=== PATIENT | male | born 1935 | race Caucasian/White ===

== ENCOUNTER 2017-02-08 11:44 | Observation (INO) | payer MEDICARE, OTHER ==
[~2017-02-08] VITALS: Ht 177.8 cm; Wt 75.8 kg
--- NOTE | ~2017-02-08 | HP ---
History And Physical [facility] [address] [place]. [address] NAME: JULIA NAVA : 39 STATUS : ADM Law PAT#: [id number] AGE: 81 ADM/REG DATE : 02/08/17 MR#: [id number] REPORT SERV DATE: 02/09/17 DICTATED BY: ABBY QUISPE DATE: 02/09/17 REPORT STATUS : Draft TRANSCRIBED BY: MODLucas DATE: 02/09/17 DATE OF ADMISSION: 02/08/2017 PROCESS CHEMIST: Ramsey Mercedes M.D. CHIEF COMPLAINT: Chest pain with elevated blood pressure. HISTORY OF PRESENT ILLNESS: This is a very pleasant 81-year-old white gentleman with known history of CAD status post CABG x2 in 2007 with BACA to LAD and vein graft to second diagonal. The patient states that on 02/08/2017 around 11 a.m., he experienced left-sided chest pain described as a tightness that did not radiate elsewhere. He checked his blood pressure and his systolic reading was 180. He had not taken his a.m. meds as yet. He ate a bite, took his medications, but his systolic blood pressure reading remained 200 20 minutes later, which concerned him. The chest pain did not radiate elsewhere. He reports associated dizziness, although he has recent workup for ongoing dizziness. He denies shortness of breath, nausea, diaphoresis, or belching. At its most intense, his chest pain was rated at 4/10. At the time of interview in the [facility], he is pain free. The episode lasted approximately 45 minutes in duration. No medications were taken specific to the chest pain. He states that he does not have sublingual nitroglycerin script available to take. The patient denies any personal history of myocardial infarction, stroke, DVT, or pulmonary embolus. The patient denies any recent fever or chills. No palpitations, no syncopal events. Denies PND or orthopnea. PAST MEDICAL HISTORY: 1. CAD. a. Status post CABG x[place] [address] Orta with BACA to LAD and vein graft to second diagonal. 2. Hypertension. 3. Dyslipidemia. 4. Denies diabetes. 5. GERD. 6. Recent imbalance versus dizziness with workup by ENT. 7. Positive family history for early CAD. SURGICAL HISTORY: 1. CABG x2 in 2007 as above. 2. Cholecystectomy. 3. Left cataract repair. 4. Right rotator cuff repair. SOCIAL HISTORY: He is with four children. Retired from [employer] and [employer]. He does not have a structured exercise routine. Denies tobacco, alcohol, or illicits. FAMILY HISTORY: Father of a heart attack at 85 with a history of a stroke earlier. History And Physical [address] [address] NAME: JULIA NAVA : 39 STATUS : ADM Law PAT#: [id number] AGE: 81 ADM/REG DATE : 02/08/17 MR#: [id number] REPORT SERV DATE: 02/09/17 DICTATED BY: ABBY QUISPE DATE: 02/09/17 REPORT STATUS : Draft TRANSCRIBED BY: HALINA DATE: 02/09/17 Sister with CAD and bypass in her 60s, remains alive at 76. REVIEW OF SYSTEMS: A 14-point review of systems is performed, significant for HPI including routine home systolic blood pressure of 120 to 130 and aspirin 325 daily. Otherwise, complete review of systems was obtained and negative. ALLERGIES: TO CIPRO, RASH AND SWELLING; BEE STING, SWELLING. HOME MEDICATIONS: Vitamin C 500 mg daily, aspirin 325 daily, Lipitor 20 mg nightly, Coreg CR 10 mg daily, vitamin D3 at 1000 units daily, vitamin B12 at 1000 mcg daily, Vasotec 10 mg twice daily, TriCor 145 mg daily, Zantac 150 mg daily, and multivitamin daily. PHYSICAL EXAMINATION: VITAL SIGNS: Bilateral blood pressures on arrival, right 131/60, left 124/60, this morning 149/67; pulse 51; respirations 15; temperature 97.3; O2 saturation 98% on room air. Height 5 feet 10 inches, weight 167 pounds. BMI 24. GENERAL: Cooperative, in no apparent distress. HEENT: Pupils 2 mm, sclera nonicteric. Nares patent. Moist mucous membranes. No xanthelasma. NECK: Trachea midline, no thyromegaly. No JVD. No bruits. LYMPH: No cervical lymphadenopathy. No supraclavicular lymphadenopathy. RESPIRATORY: Unlabored respirations. Breath sounds clear bilaterally to posterior auscultation. No wheezes or rhonchi. CARDIOVASCULAR: Regular rate. No murmur, rub or gallop appreciated. Extremities without edema. Pulses 2+ bilaterally. ABDOMEN: Soft, nontender, nondistended, normal bowel sounds auscultated throughout. No organomegaly. SKIN: Warm, dry extremities. No pallor, or cyanosis. PSYCHIATRIC: Appropriate affect. Alert, oriented x3. LABORATORY DATA: Troponins less than 0.02, less than 0.02, 0.03. Potassium 3.9, BUN 21, creatinine 1.14, glucose 103, magnesium 2.2. WBC 6.1, hemoglobin 15.9, hematocrit 45.0, and platelet count 204,000. IMAGING: EKG: Sinus bradycardia, anterolateral ST-T wave changes or abnormalities (unchanged). Echo in 07/2014: EF 55% to 60%. Moderate LVH. Moderate LAE. MPI in 12/2015: EF 49%. Normal perfusion imaging. Cath in 2012 (Dr. Bernabe): Ostial LAD 70%, mid RCA minor irregularities, vein graft to first diagonal, no degeneration, BACA to LAD, hypoplastic but patent. ASSESSMENT AND PLAN: 1. Chest pain. The patient has been observed in the CP[facility] overnight to rule out myocardial infarction. Serial enzymes negative and EKG stable. N.p.o. for MPI today. The History And Physical [address] [address] NAME: JULIA NAVA : 39 STATUS : ADM Law PAT#: [id number] AGE: 81 ADM/REG DATE : 02/08/17 MR#: [id number] REPORT SERV DATE: 02/09/17 DICTATED BY: ABBY QUISPE DATE: 02/09/17 REPORT STATUS : Draft TRANSCRIBED BY: MODLucas DATE: 02/09/17 patient will be discharged home if low risk, no ischemia. To follow up with Dr. Mercedes on 02/15/2017 as previously scheduled if anything suggestive of ischemia. The patient states he does not want bypass, but he would be amenable to stenting if required. If anything suggestive of ischemia, Cardiology referral will be initiated. 2. Coronary artery disease, continue home medications. 3. Hypertension, well controlled here. Continue home medications. 4. Dyslipidemia, statin. 5. Dizziness, recent workup with ENT. The patient states that he has a followup for discussion of findings on 02/11/2017. He has been instructed to keep that appointment. 6. No nitroglycerin available. Script and education will be provided at discharge. RONAL/HALINA NATALYA Cohen, SENIOR CYTOGENETICS LABORATORY DIRECTOR-BC / [id number] CC: NATALYA Cohen, SENIOR CYTOGENETICS LABORATORY DIRECTOR-BC [facility]
[~2017-02-08 11:44] MED LIST: ACET500CAP PO; ACULAR OPH; ALLEGRA180 MG OR; ALLEGRA180 PO; ASA5GR PO; ASAB PO; CENTRUM PO; CENTRUM TAB1 TAB PO; COREGCR10 PO; COREGCR40 PO; CYANO1000T PO; LIPITOR10 PO; MICROZIDE PO; MULTIVITAMI1 PO; NEXIUM40 PO; PEP20 PO; POLYMYXIN B/ OPH; PRAVAC PO; PREDFORTE OPH; TRICOR145 PO; TRILIPIX135 MG PO; ULTRAM50 PO; VASOTEC10 PO; VASOTEC5 PO; VITAMIN B-122500 MCG SL; VITAMIN B12 COMPLEX; VITAMIN C + OR; VITAMIN C500 M3 PO; VITAMIN D31000 UNIT PO; VITC500 PO; ZANTAC 150 PO
[2017-02-08 12:18] LABS: BASOPHILS 0.3 %; BASOPHILS ABSOLUTE 0.02 10/3/uL (0.0-0.16); EOSINOPHILS 0.5 %; EOSINOPHILS ABSOLUTE 0.03 10/3/uL (0.0-0.53); ER CBC TAT 0 Hrs 03 Mins; HEMOGLOBIN 15.9 g/dL (13.6-17.8); IMMATURE GRANULOCYTES 0.2 %; IMMATURE GRANULOCYTES ABSOLUTE 0.01 10/3/uL (0.0-0.11); LYMPHOCYTES 23.1 %; LYMPHOCYTES ABSOLUTE 1.42 10/3/uL (0.67-4.30); MEAN CORPUS HGB CONC 35.3 g/dL (32.0-36.0); MEAN CORPUSCULAR HEMOGLOB 32.8 pg (26.0-34.0); MEAN CORPUSCULAR VOLUME 92.8 fL (80-100); MEAN PLATELET VOLUME 9.4 fL (9.2-13.0); MONOCYTES 8.6 %; MONOCYTES ABSOLUTE 0.53 10/3/uL (0.21-1.20); NEUTROPHILS 67.3 %; NEUTROPHILS ABSOLUTE 4.13 10/3/uL (2.02-8.40); PLATELET COUNT 204 10/3/uL (150-400); RED CELL COUNT 4.85 10/6/uL (4.7-6.1); WHITE BLOOD CELLS 6.1 10/3/uL (4.5-10.5)
[2017-02-08 12:19] LABS: MANUAL DIFF NO %
[2017-02-08 12:29] LABS: INTERNATIONAL NORMAL RATI 1.1 UNITS (-); PARTIAL THROMBO TIME 26.6 SEC (22.5-37.2); PROTIME (NOT ORD) 13.7 SEC (12.0-14.5)
[2017-02-08 12:35] LABS: BUN (BLOOD UREA NITROGEN) 21 MG/DL (6-23); CALCIUM, SERUM 9.2 MG/DL (8.5-10.4); CHEST PAIN PROFILE TAT 0 Hrs 20 Mins; CHLORIDE, SERUM 105 MMOL/L (96-112); CO2 (CARBON DIOXIDE) 31 MMOL/L (24-34); CREATININE 1.14 MG/DL (0.70-1.30); GFR AFRICAN AMERICAN 71 ML/MIN (>=60); GFR NON AFRICAN AMERICAN 61 ML/MIN (>=60); GLUCOSE, SERUM 103 MG/DL (60-99); POTASSIUM, SERUM 3.9 MMOL/L (3.5-5.3); SODIUM, SERUM 140 MMOL/L (135-148); TROPONIN I <0.02 NG/ML (<0.05)
[2017-02-08] MEDS ORDERED: VASOTEC10 PO (16:42)
[2017-02-08] MEDS ORDERED: COREGCR10 PO (16:42)
[2017-02-08] MEDS ORDERED: TRICOR145 PO (16:43)
[2017-02-08] MEDS ORDERED: LIPITOR20 PO (16:43)
[2017-02-08] MEDS ORDERED: ZANTAC150 MG PO (16:43)
[2017-02-08] MEDS ORDERED: VITAMIN D31000 UNIT PO (16:44)
[2017-02-08] MEDS ORDERED: VITC500 PO (16:44)
[2017-02-08] MEDS ORDERED: HALF81 PO (16:44)
[2017-02-08] MEDS ORDERED: CYANO1000T PO (16:45)
[2017-02-09] MEDS ORDERED: NITROSTAT0.4 MG SL (15:56)
== END 2017-02-09 16:11 | disposition home or self-care (01) ==
LOC: ER 11:44 → CDU1 16:07 → CDU2 16:07
PROVIDERS: Hospitalist
DX: R07.9 Chest pain, unspecified (principal); I10 Essential (primary) hypertension; I25.810 Atherosclerosis of coronary artery bypass graft(s) without angina pectoris; I70.0 Atherosclerosis of aorta; E78.5 Hyperlipidemia, unspecified; M19.90 Unspecified osteoarthritis, unspecified site; K21.9 Gastro-esophageal reflux disease without esophagitis; Z90.49 Acquired absence of other specified parts of digestive tract; Z82.49 Family history of ischemic heart disease and other diseases of the circulatory system; Z98.890 Other specified postprocedural states; Z88.1 Allergy status to other antibiotic agents; Z91.030 Bee allergy status; Z79.82 Long term (current) use of aspirin; Z79.899 Other long term (current) drug therapy
CPT/HCPCS: 71020; 78452; 80048; 83735; 84484; 85025; 85610; 85730; 93005; 93017; 93308; 99285; A9270-GY; A9502; G0378